=== PATIENT | male | born 1980 | race Caucasian/White ===

== ENCOUNTER 2023-09-23 19:47 | Outpatient (CLI) | payer OTHER, SELFPAY ==
--- NOTE | 2023-09-27 08:33 | W.PM.SLEEP ---
Sleep Study Details Details Interpreting Provider: Lars Date of Sleep Study: 09/23/23 Sleep Study Details: STUDY TYPE:? Hospital-based attended ? BMI:? 26.4 ORDERING PROVIDER:? Lars INDICATION:? Concerns about sleep apnea ? SLEEP SUMMARY:? 380 minutes total sleep time RESPIRATORY SUMMARY:? Mean oxygen awake 96 asleep 97 minimum 91 AHI 15, supine AHI 41.1, nonsupine AHI 10.4 Supine REM AHI no REM sleep recorded supine PERIODIC LIMB MOVEMENTS OF SLEEP:? Index 7.1, index with arousal 0.3 CARDIAC:? Awake 65 asleep 59. PVCs were noted including runs of trigeminy IMPRESSION:? Trigeminy noted further cardiac evaluation may be indicated Moderate obstructive sleep apnea with supine position dependency. RECOMMENDATION: Further cardiac evaluation may be indicated For the sleep apnea AutoSet CPAP would be reasonable. Dental appliance may also be effective.
== END 2023-09-23 19:48 | disposition home or self-care (01) ==
LOC: SLEEP 19:49
PROVIDERS: Visit Provider Otolaryngology
DX: G47.33 Obstructive sleep apnea (adult) (pediatric) (principal)
CPT/HCPCS: 95810

== ENCOUNTER 2024-11-30 08:32 | Outpatient (CLI) | payer BC, SELFPAY | END 2024-11-30 08:33 | disposition home or self-care (01) | PROVIDERS: Visit Provider Family Medicine | DX: Z01.818 Encounter for other preprocedural examination (principal) | CPT/HCPCS: 80048; 80061 ==

== ENCOUNTER 2024-12-18 12:08 | Day surgery (SDC) | payer BC, SELFPAY ==
[2024-12-18] VITALS (10 sets, daily range): BP systolic 114–137; BP diastolic 76–94; PULSE 68–79; RESP 13–16; TEMP 36.1–36.6; O2SAT 96–99; BMI 28.9
[2024-12-18] MEDS: LACTATED RINGERS 1000 ML 1,000 ML 100 ML IV (12:15)
[2024-12-18] MEDS: OXYMETAZOLINE 0.05% NASAL SPRAY 2 SPRAY NOSTRIL-B (12:45)
[2024-12-18] MEDS: SODIUM CHLORIDE 0.9 % (FLUSH) 10 ML SYRINGE IVF (12:46)
[2024-12-18] MEDS: BUPIVACAINE 0.5%/EPINEPHRINE 0.9 MG (30.9 ML) INJECTION (13:18)
[2024-12-18] MEDS: AYR SALINE NASAL GEL 1 APPLIC NOSTRIL-B (13:24)
[2024-12-18] MEDS: MUPIROCIN 1 GM PACKET 1 APPLIC TOPICAL (13:37)
--- NOTE | 2024-12-18 13:45 | W.PM.ENTPROC ---
Procedure Note Date of procedure: 12/18/24 Procedure: Preop diagnosis nasal obstruction deviated septum and bilateral inferior turbinate hypertrophy Postoperative diagnosis same Procedure nasal septoplasty, submucous partial resection inferior turbinates bilateral Under general trach anesthesia patient was prepped draped usual fashion. The nose was decongested and injected. A right hemitransfixion incision was made. Bilateral anterior and posterior tunnels were created. A vertical incision was made through the cartilage anterior to the bone the bone from the cartilage. The posterior deflected portions of septal bone resected in 2 large pieces trimmed returned to intraseptal space. Arm anteriorly no cartilage was resected. The septum and after being freed of attachments was able to return to midline. A stab incision was made in the anterior of the right inferior turbinate a tunnel created with a Sidney dissector. The thaddeus bone was outfractured and a conservative anterior submucous resection performed. The Coblation was used for hemostasis and to cauterize intramurally along the inferior 10%. This was repeated on the left side in identical fashion. The hemitransfixion was closed with 2 4-0 chromic sutures, silastic stents were secured with 3-0 nylon and Merocel packing was trimmed lengthwise in 2 pieces placed on the right side of the nose to maintain position. Patient procedure was taken recovery in satisfactory condition. Blood loss was less than 10 mL. Surgeon: Dequan Sousa MD
--- NOTE | 2024-12-18 13:49 | P.ANES_ITS ---
Anesthesia Charges Start Date/Time Anesthesia Start Date: 12/18/24 Anesthesia Start Time: 13:04 Stop Date/Time Anesthesia Stop Date: 12/18/24 Anesthesia Stop Time: 13:49 Coding CPT Codes CPT Codes: ANESTH NOSE/SINUS SURGERY - 30332 ([id number]) P1 - NORMAL HEALTHY PATIENT, QK - STORAGE BATTERY INSPECTOR 2-4 CNCRNT ANES PROC, QX - PSYCHOLOGICAL OPERATIONS SVGabriele W/ MED DIRECTION
--- NOTE | 2024-12-18 13:49 | W.ANESCHARGE ---
Anesthesia Charges Start Date/Time Anesthesia Start Date: 12/18/24 Anesthesia Start Time: 13:04 Stop Date/Time Anesthesia Stop Date: 12/18/24 Anesthesia Stop Time: 13:49 Coding CPT Codes CPT Codes: ANESTH NOSE/SINUS SURGERY - 74733 ([id number]) P1 - NORMAL HEALTHY PATIENT, QK - DELIVERY ROUTE DRIVER 2-4 CNCRNT ANES PROC, QX - EXHAUSTER SVGabriele W/ MED DIRECTION
--- NOTE | 2024-12-18 13:59 | P.ANES_ITS ---
Anesthesia Charges Start Date/Time Anesthesia Start Date: 12/18/24 Anesthesia Start Time: 13:04 Stop Date/Time Anesthesia Stop Date: 12/18/24 Anesthesia Stop Time: 13:49 Coding CPT Codes CPT Codes: ANESTH NOSE/SINUS SURGERY - 13535 ([id number]) QK - CARPENTERS SUPERVISOR 2-4 CNCRNT ANES PROC, QX - MANAGER MECHANICAL MAINTENANCE SVC W/ MD MED DIRECTION, P1 - NORMAL HEALTHY PATIENT
--- NOTE | 2024-12-18 13:59 | W.ANESCHARGE ---
Anesthesia Charges Start Date/Time Anesthesia Start Date: 12/18/24 Anesthesia Start Time: 13:04 Stop Date/Time Anesthesia Stop Date: 12/18/24 Anesthesia Stop Time: 13:49 Coding CPT Codes CPT Codes: ANESTH NOSE/SINUS SURGERY - 92224 ([id number]) QK - SEAMER PANTY HOSE 2-4 CNCRNT ANES PROC, QX - LOOK OUT TOWER FIRE WATCHER SVC W/ MD MED DIRECTION, P1 - NORMAL HEALTHY PATIENT
== END 2024-12-18 14:43 | disposition home or self-care (01) ==
LOC: OR 12:10
PROVIDERS: Visit Provider Otolaryngology
PROC: (CPT 30520; principal; 2024-12-18 13:15)
DX: J34.2 Deviated nasal septum (principal); J34.3 Hypertrophy of nasal turbinates
CPT/HCPCS: 30520; 30140; 00160; A9270; J0330; J1100; J2405; J2704; J3010; J7120